=== PATIENT | female | born 1985 | race African-American/Black ===

== ENCOUNTER 2016-09-17 10:18 | Inpatient (IN) | payer OTHER ==
[2016-09-17 11:12] VITALS: BMI 21.9
--- NOTE | 2016-09-17 12:59 | HP ---
Admission [facility] Chief Complaint: i am here mandated by court to seek help for cocaine dependence Allergies/Adverse Reactions: Allergies Allergy/AdvReac Type Severity Reaction Status Date / Time No Known Allergies Allergy Verified 09/17/16 12:53 History of Present Illness: this 30 years old female with cocaine dependence ,mandated by court to come in for rehab,never been in detox or rehab before depression nicotine dependence weight loss [facility] on 08/22/16 Exam Limitations: No Limitations - Ebola screening Have you traveled outside of the country in the last 21 days: No Have you had contact with anyone from an Ebola affected area: No Have you been sick,other than usual withdrawal symptoms: No Do you have a fever: No - Review of Systems Constitutional: No Symptoms Reported EENT: reports: No Symptoms Reported Respiratory: reports: No Symptoms reported Cardiac: reports: No Symptoms Reported GI: reports: No Symptoms Reported : reports: No Symptoms Reported Musculoskeletal: reports: No Symptoms Reported Integumentary: reports: No Symptoms Reported Neuro: reports: No Symptoms reported Endocrine: reports: No Symptoms Reported Hematology: reports: No Symptoms Reported Psychiatric: reports: Depressed Patient History - Patient Medical History Hx Anemia: No Hx Asthma: No Hx Chronic Obstructive Pulmonary Disease (COPD): No Hx Cancer: No Hx Cardiac Disorders: No Hx Congestive Heart Failure: No Hx Hypertension: No Hx Hypercholesterolemia: No Hx Pacemaker: No HX Cerebrovascular Accident: No Hx Seizures: No Hx Dementia: No Hx Diabetes: No Hx Gastrointestinal Disorders: No Hx Liver Disease: No Hx Genitourinary Disorders: No Hx Sexually Transmitted Disorders: No Hx Renal Disease (ESRD): No Hx Thyroid Disease: No Hx Human Immunodeficiency Virus (HIV): No (last 06/27 negative) Hx Hepatitis C: No Hx Depression: Yes Hx Suicide Attempt: No Hx Bipolar Disorder: No Hx Schizophrenia: No Other Medical History: no suicidal,no homicidal - Patient Surgical History Past Surgical History: No - PPD History Previous Implant?: Yes Documented Results: Negative w/o proof Implanted On Prior R Admission?: No PPD to be Administered?: Yes - Reproductive History Patient is a Female of Child Bearing Age (11 -55 yrs old): Yes Patient : No - Smoking Cessation Smoking history: Current every day smoker Have you smoked in the past 12 months: Yes Aproximately how many cigarettes per day: 4 Cigars Per Day: 0 Hx Chewing Tobacco Use: No Initiated information on smoking cessation: Yes 'Breaking Loose' booklet given: 09/17/16 - Substance & Tx. History Hx Alcohol Use: No Hx Substance Use: Yes Substance Use Type: Cocaine Hx Substance Use Treatment: No - Substances Abused Cocaine Route: Inhalation Frequency: 3-6 times per week Amount used: 20$ Age of first use: 27 Date of Last Use: 09/16/16 Family Disease History - Family Disease History Family Disease History: Other: Father (alcohol,dsa ) Admission Physical Exam [facility] - Vital Signs Vital Signs: Vital Signs - 24 hr 09/17/16 11:08 Temperature 97.1 F L Pulse Rate 72 Respiratory 20 Rate Blood Pressure 125/72 - Physical General Appearance: Yes: Within Normal Limits HEENTM: Yes: Within Normal Limits, VIKRAM, Pharynx Normal Respiratory: Yes: Lungs Clear, Normal Breath Sounds Neck: Yes: Within Normal Limits, Supple, Trachea in good position Breast: Yes: Breast Exam Deferred Cardiology: Yes: Within Normal Limits, Regular Rhythm, Regular Rate, S1, S2 Abdominal: Yes: Within Normal Limits, Normal Bowel Sounds, Non Tender, Flat, Soft Genitourinary: Yes: Within Normal Limits Back: Yes: Within Normal Limits Musculoskeletal: Yes: Within Normal Limits Extremities: Yes: Within Normal Limits, Normal Inspection, Normal Range of Motion 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 intact, Alert, Motor Strength 5/5 Integumentary: Yes: Within Normal Limits Lymphatic: Yes: Within Normal Limits - Diagnostic (1) Cocaine dependence Current Visit: Yes Status: Acute (2) Weight loss Current Visit: Yes Status: Acute (3) Nicotine dependence Current Visit: Yes Status: Acute (4) Depression Current Visit: Yes Status: Acute Cleared for Admission [facility] - Detox or Rehab Claeared for Rehab Admission: Yes (please be noted that patient is ) [facility] Breath Alcohol Content Breath Alcohol Content: 0 Urine Pregancy Test - Result Urine Test Results: Positive - Line Present Urine Drug Screen - Results Drug Screen Negative: No Urine Drug Screen Results: GABRIELA-Cocaine
[2016-09-17] MEDS ORDERED: diphenhydrAMINE HCL 50 MG CAPSULE PO PRN (13:14)
[2016-09-17] MEDS ORDERED: LOPERAMIDE HCL 2 MG CAPSULE PO PRN (13:14)
[2016-09-17] MEDS ORDERED: IBUPROFEN 400 MG TABLET (FP) PO PRN (13:14)
[2016-09-17] MEDS ORDERED: P-EPHED 60MG/TRIPROLIDI 2.5MG TABLET PO PRN (13:14)
[2016-09-17] MEDS ORDERED: MAGNESIUM HYDROX 2400MG/30ML ORAL SUSPENSION 30 ML CUP PO PRN (13:14)
[2016-09-17] MEDS ORDERED: guaiFENesin/D-METHORPHAN HB 10 ML UNIT-DOSE CUPS PO PRN (13:14)
[2016-09-17] MEDS ORDERED: MAG HYDROX/AL HYDROX/SIMETH 30 ML UNIT-DOSE CUP PO PRN (13:14)
[2016-09-17] MEDS ORDERED: MAGNESIUM CITRATE 300 ML BOTTLE PO PRN (13:14)
[2016-09-17] MEDS ORDERED: hydrOXYzine PAMOATE 50 MG CAPSULE (FP) PO PRN (13:14)
[2016-09-17] MEDS ORDERED: TUBERCULIN PPD 5 TU/0.1ML VIAL ID ONE (15:00)
--- NOTE | 2016-09-17 15:23 | HP ---
Psychiatrist Admission - Data Date of interview: 09/17/16 Admission source: Court mandated Identifying data: This is the first admission to [address] [place] [address] for this 30 yo single AA mother of (12,10,6,13 months and 3 weeks old baby).Kids are in Foster care,Patient resides with boyfriend who is the father of her 3 weeks old baby girl,supported by [place]. Medical History: H/O BA. Psychiatric History: Patient reports depressed mood on and of for a few years.She was admitted to [facility] last year for severe depression.She was placed on Celexa,but stopped taking when she was discharged from the hospital.She was evaluated by psychiatrist about 1 year ago ,mandated by court.Patient states that medications were not recommended.denies suicidal attempts.Not on any psychotropic medcations at present. Physical/Sexual Abuse/Trauma History: denies Vital Signs: Vital Signs - 24 hr 09/17/16 09/17/16 11:08 15:05 Temperature 97.1 F L 98.2 F Pulse Rate 72 73 Respiratory 20 16 Rate Blood Pressure 125/72 120/82 Allergies/Adverse Reactions: Allergies Allergy/AdvReac Type Severity Reaction Status Date / Time No Known Allergies Allergy Verified 09/17/16 12:53 Date of last physical exam: 09/17/16 Concur with the findings of this exam: Yes - Substance Abuse/Tx History Hx Alcohol Use: No Hx Substance Use: Yes (reports reports started using cocaine/crack about 1 yo) Substance Use Type: Cocaine Hx Substance Use Treatment: Yes (this is her first inpatient treatment) - Admission Criteria Previous failed treatment: Yes Poor recovery environment: Yes Comorbidities: Yes Lacks judgement: Yes Mental Status Exam - Mental Status Exam Alert and Oriented to: Time, Place, Person Cognitive Function: Grossly Intact Patient Appearance: Unkempt Mood: Depressed, Sad Affect: Mood Congruent, Constricted Patient Behavior: Cooperative Speech Pattern: Clear Voice Loudness: Normal Thought Process: Goal Oriented Thought Disorder: Not Present Hallucinations: Denies Suicidal Ideation: Denies Homicidal Ideation: Denies Insight/Judgement: Fair Sleep: Fair Appetite: Good Muscle strength/Tone: Normal Gait/Station: Normal Psychiatric Findings - Problem List ([place] 1, 2,3) (1) Cocaine dependence Current Visit: Yes Status: Chronic (2) Nicotine dependence Current Visit: Yes Status: Chronic (3) Substance induced mood disorder Current Visit: Yes Status: Chronic - Initial Treatment Plan Initial Treatment Plan: Consider antidepressants if needed. Will monitor progress.
[2016-09-17 15:48] LABS: MCH 32.2 pg (25.7-33.7); MCHC 32.5 g/dl (32.0-36.0); MEAN PLT VOLUME 6.9 fl (7.5-11.1); PLATELET COUNT 289 K/MM3 (134-434); RDW 13.9 % (11.6-15.6); WHITE BLOOD COUNT 5.1 K/mm3 (4.0-10.0)
[2016-09-17 15:53] LABS: ALBUMIN 3.3 g/dl (3.4-5.0); CALCIUM 8.9 mg/dL (8.5-10.1)
[2016-09-17 15:56] LABS: BILIRUBIN,TOTAL 0.5 mg/dL (0.2-1.0); COCKROFT - GAULT 72.165; CREATININE 1.1 mg/dL (0.55-1.02); TOT PROT 6.1 g/dl (6.4-8.2)
[2016-09-17 17:26] LABS: URINE APPEARANCE CLEAR; URINE BILIRUBIN NEGATIVE (NEGATIVE); URINE COLOR LTYELLOW; URINE GLUCOSE (UA) NEGATIVE (NEGATIVE); URINE KETONE NEGATIVE (NEGATIVE); URINE LEUK ESTERASE NEGATIVE (NEGATIVE); URINE NITRITE NEGATIVE (NEGATIVE); URINE UROBILINOGEN NEGATIVE E.U./dl (0.2-1.0)
[2016-09-17 17:35] LABS: URINE BLOOD 1+ (NEGATIVE); URINE PROTEIN 2+ (NEGATIVE)
[2016-09-17 17:41] LABS: URINE MUCUS RARE; URINE RBC 5 /hpf (0-3); URINE WBC 3 /hpf (3-5)
[2016-09-17] MEDS: THIAMINE HCL 100 MG TABLET (FP) PO SCH (21:29)
[2016-09-18] MEDS: PRENATAL VITAMINS W/ FOLIC ACID TABLET (FP) PO SCH (10:08)
[2016-09-18 11:53] LABS: HIV 1 & 2 AB NEGATIVE; HIV 1 AGp24 NEGATIVE
--- NOTE | 2016-09-18 12:50 | EKG ---
Test Reason : Blood Pressure : / mmHG Vent. Rate : 064 BPM Atrial Rate : 064 BPM P-R Int : 166 ms QRS Dur : 082 ms QT Int : 400 ms P-R-T Axes : 048 026 038 degrees QTc Int : 412 ms NORMAL SINUS RHYTHM NORMAL ECG NO PREVIOUS ECGS AVAILABLE Confirmed by SHELDON PARDO MD ([id number]) on 09/18/2016 12:50:29 PM Referred By: Confirmed By:SHELDON PARDO MD
[2016-09-18] MEDS: THIAMINE HCL 100 MG TABLET (FP) PO SCH (21:21)
[2016-09-19] MEDS: PRENATAL VITAMINS W/ FOLIC ACID TABLET (FP) PO SCH (10:18)
[2016-09-19] MEDS ORDERED: AMOXICILLIN 500 MG CAPSULE (FP) PO ONE (13:21)
--- NOTE | 2016-09-19 13:24 | PN ---
[facility] Progress Note Note: sore throat ,pharynx injected,cervical lymphadenitis,amoxicillin 500 mgs po tid for 7 days for uri,motrin 400 mgs po prn for pain q 6 hrs
[2016-09-19] MEDS: AMOXICILLIN 500 MG CAPSULE (FP) PO SCH ×2 (13:46→21:37)
[2016-09-19] MEDS: MENTHOL/PHENOL 1 EACH UD MM PRN (14:44)
[2016-09-19] MEDS: ACETAMINOPHEN 325 MG TABLET (FP) PO PRN (18:32)
[2016-09-19] MEDS: THIAMINE HCL 100 MG TABLET (FP) PO SCH (21:37)
[2016-09-20] MEDS: AMOXICILLIN 500 MG CAPSULE (FP) PO SCH ×3 (07:03→21:31)
[2016-09-20] MEDS: ACETAMINOPHEN 325 MG TABLET (FP) PO PRN (08:59)
[2016-09-20] MEDS: MENTHOL/PHENOL 1 EACH UD MM PRN (09:00)
[2016-09-20] MEDS: PRENATAL VITAMINS W/ FOLIC ACID TABLET (FP) PO SCH (10:02)
[2016-09-20] MEDS: THIAMINE HCL 100 MG TABLET (FP) PO SCH (21:31)
[2016-09-21] MEDS: AMOXICILLIN 500 MG CAPSULE (FP) PO SCH ×3 (06:59→21:34)
[2016-09-21] MEDS: PRENATAL VITAMINS W/ FOLIC ACID TABLET (FP) PO SCH (10:09)
[2016-09-21] MEDS: THIAMINE HCL 100 MG TABLET (FP) PO SCH (21:34)
[2016-09-22] MEDS: AMOXICILLIN 500 MG CAPSULE (FP) PO SCH ×3 (07:27→21:27)
[2016-09-22] MEDS: PRENATAL VITAMINS W/ FOLIC ACID TABLET (FP) PO SCH (09:58)
[2016-09-22] MEDS: THIAMINE HCL 100 MG TABLET (FP) PO SCH (21:27)
[2016-09-23] MEDS: AMOXICILLIN 500 MG CAPSULE (FP) PO SCH ×3 (06:30→21:19)
[2016-09-23] MEDS: PRENATAL VITAMINS W/ FOLIC ACID TABLET (FP) PO SCH (10:53)
[2016-09-23] MEDS: THIAMINE HCL 100 MG TABLET (FP) PO SCH (21:19)
[2016-09-24] MEDS: AMOXICILLIN 500 MG CAPSULE (FP) PO SCH ×3 (06:42→21:23)
[2016-09-24] MEDS: PRENATAL VITAMINS W/ FOLIC ACID TABLET (FP) PO SCH (10:06)
[2016-09-24] MEDS: THIAMINE HCL 100 MG TABLET (FP) PO SCH (21:23)
[2016-09-25] MEDS: AMOXICILLIN 500 MG CAPSULE (FP) PO SCH ×3 (06:24→21:31)
[2016-09-25] MEDS: PRENATAL VITAMINS W/ FOLIC ACID TABLET (FP) PO SCH (10:03)
[2016-09-25] MEDS: THIAMINE HCL 100 MG TABLET (FP) PO SCH (21:31)
[2016-09-26] MEDS: AMOXICILLIN 500 MG CAPSULE (FP) PO SCH ×2 (06:11→13:16)
[2016-09-26] MEDS: PRENATAL VITAMINS W/ FOLIC ACID TABLET (FP) PO SCH (09:58)
[2016-09-26] MEDS: ACETAMINOPHEN 325 MG TABLET (FP) PO PRN (13:30)
--- NOTE | 2016-09-26 14:54 | PN ---
[facility] Progress Note Note: small cyst like mass left axilla,not tender or warm. P : bacitracin oin't bid
[2016-09-26] MEDS: THIAMINE HCL 100 MG TABLET (FP) PO SCH (21:43)
[2016-09-26] MEDS: BACITRACIN 0.9 GM PACKET TP SCH (21:44)
[2016-09-27] MEDS: BACITRACIN 0.9 GM PACKET TP SCH ×2 (09:49→21:12)
[2016-09-27] MEDS: PRENATAL VITAMINS W/ FOLIC ACID TABLET (FP) PO SCH (09:50)
[2016-09-27] MEDS: ACETAMINOPHEN 325 MG TABLET (FP) PO PRN (14:18)
[2016-09-27] MEDS: THIAMINE HCL 100 MG TABLET (FP) PO SCH (21:12)
[2016-09-28] MEDS: BACITRACIN 0.9 GM PACKET TP SCH ×2 (09:37→21:14)
[2016-09-28] MEDS: PRENATAL VITAMINS W/ FOLIC ACID TABLET (FP) PO SCH (09:38)
[2016-09-28] MEDS: ACETAMINOPHEN 325 MG TABLET (FP) PO PRN ×2 (14:49→21:14)
[2016-09-28] MEDS: THIAMINE HCL 100 MG TABLET (FP) PO SCH (21:14)
[2016-09-29] MEDS: BACITRACIN 0.9 GM PACKET TP SCH ×2 (10:03→21:27)
[2016-09-29] MEDS: PRENATAL VITAMINS W/ FOLIC ACID TABLET (FP) PO SCH (10:03)
[2016-09-29] MEDS: ACETAMINOPHEN 325 MG TABLET (FP) PO PRN (10:04)
--- NOTE | 2016-09-29 13:51 | PN ---
[facility] Progress Note Note: c/o headache associated with borderline elevated BP Vital Signs - 8 hr 09/29/16 09/29/16 06:47 10:10 Temperature 98.0 F Pulse Rate 77 76 Respiratory 18 Rate Blood Pressure 131/86 135/86 P : Lisinopril 5 mg
[2016-09-29] MEDS: LISINOPRIL 5 MG TABLET (FP) PO SCH (14:30)
[2016-09-29] MEDS: THIAMINE HCL 100 MG TABLET (FP) PO SCH (21:27)
[2016-09-30 10:27] LABS: CREATININE 0.8 mg/dL (0.55-1.02)
[2016-09-30] MEDS: PRENATAL VITAMINS W/ FOLIC ACID TABLET (FP) PO SCH (10:31)
[2016-09-30] MEDS: LISINOPRIL 5 MG TABLET (FP) PO SCH (10:31)
[2016-09-30] MEDS: BACITRACIN 0.9 GM PACKET TP SCH ×2 (10:31→21:25)
--- NOTE | 2016-09-30 15:16 | PN ---
[facility] Progress Note Note: no headache since started on lisinopril 5mg daily. Vital Signs - 8 hr 09/30/16 09/30/16 07:38 09:44 Temperature 98.7 F Pulse Rate 74 81 Respiratory 18 Rate Blood Pressure 112/73 115/73 creat 0.8 bun 26 Laboratory Results - last 24 hr 09/30/16 07:20 BUN 26 H D Creatinine 0.8 D
[2016-09-30] MEDS: THIAMINE HCL 100 MG TABLET (FP) PO SCH (21:24)
[2016-10-01] MEDS: BACITRACIN 0.9 GM PACKET TP SCH ×2 (10:16→21:25)
[2016-10-01] MEDS: LISINOPRIL 5 MG TABLET (FP) PO SCH (10:16)
[2016-10-01] MEDS: PRENATAL VITAMINS W/ FOLIC ACID TABLET (FP) PO SCH (10:16)
[2016-10-01] MEDS: THIAMINE HCL 100 MG TABLET (FP) PO SCH (21:24)
[2016-10-01] MEDS: ACETAMINOPHEN 325 MG TABLET (FP) PO PRN (21:25)
[2016-10-02] MEDS: BACITRACIN 0.9 GM PACKET TP SCH ×2 (10:23→21:27)
[2016-10-02] MEDS: PRENATAL VITAMINS W/ FOLIC ACID TABLET (FP) PO SCH (10:23)
[2016-10-02] MEDS: LISINOPRIL 5 MG TABLET (FP) PO SCH (10:23)
[2016-10-02] MEDS: ACETAMINOPHEN 325 MG TABLET (FP) PO PRN (19:35)
[2016-10-02] MEDS: THIAMINE HCL 100 MG TABLET (FP) PO SCH (21:27)
[2016-10-03 06:51] VITALS: TEMP 98
--- NOTE | 2016-10-03 08:59 | PN ---
Psychiatric Progress Note Vital Signs: Vital Signs Period Temp Pulse Resp BP Sys/[place] Pulse Ox Last 24 Hr 98.0 F 78 16 116/80 Date of Session: 10/03/16 Chief Complaint:: Discharge visit HPI: Patient addressed Cocaine dependence cpmorbid with Substance induced mood disorder. Current Medications: Active Medications Generic Name Dose Route Start Last Admin Trade Name Freq PRN Reason Stop Dose Admin Acetaminophen 650 mg 09/17/16 13:14 10/02/16 19:35 Tylenol - PO 650 mg Q4H PRN Administration PAIN Al Hydroxide/Mg Hydroxide 30 ml 09/17/16 13:14 Mylanta Oral Suspension - PO Q6H PRN DYSPEPSIA Bacitracin 0.9 gm 09/26/16 22:00 10/02/16 21:27 Bacitracin - TP 0.9 gm BID ROHAN Administration Diphenhydramine HCl 50 mg 09/17/16 13:14 10/02/16 21:28 Benadryl - PO 50 mg HSMR1 PRN Administration INSOMNIA Eucalyptus/Menthol/Phenol/Sorbitol 1 each 09/17/16 13:14 09/20/16 09:00 Cepastat Lozenge - MM 1 each Q4H PRN Administration SORE THROAT Guaifenesin 10 ml 09/17/16 13:14 Robitussin Dm - PO Q6H PRN COUGH Hydroxyzine Pamoate 50 mg 09/17/16 13:14 Vistaril - PO Q4H PRN AGITATION Ibuprofen 400 mg 09/17/16 13:14 Motrin - PO Q6H PRN SEVERE PAIN Lisinopril 5 mg 09/29/16 14:15 10/02/16 10:23 Prinivil PO 5 mg DAILY ROHAN Administration Loperamide HCl 4 mg 09/17/16 13:14 Imodium - PO Q6H PRN DIARRHEA Magnesium Citrate 300 ml 09/17/16 13:14 Citroma - PO Q48H PRN CONSTIPATION Magnesium Hydroxide 30 ml 09/17/16 13:14 Milk Of Magnesia - PO DAILY PRN CONSTIPATION Multivit/Folic Acid/Iron 1 tab 09/18/16 10:00 10/02/16 10:23 Vitamins (Sjr) - PO 1 tab DAILY ROHAN Administration Pseudoephedrine/Triprolidine 1 combo 09/17/16 13:14 Actifed - PO TID PRN NASAL CONGESTION Thiamine HCl 100 mg 09/17/16 22:00 10/02/16 21:27 Vitamin B1 - PO 100 mg HS ROHAN Administration Current Side Effect: No Lab tests ordered: No Lab tests reviewed: Yes Provider note:: Patient completed this program today.She has met her treatment goals and will continue to address her issues on outpatient basis at [facility].Patient continues to find that current treatment including medications ,therapy help her cope with stressors and will continue same while on outpatient basis. Patient identifies behaviors which contributes to elapse and skills,support she can utilze maintain recovery. patient is stable for discharge today. Total face to face time:: 30 Mental Status Exam - Mental Status Exam Alert and Oriented to: Time, Place, Person Cognitive Function: Grossly Intact Patient Appearance: Well Groomed Mood: Euthymic Affect: Mood Congruent Patient Behavior: Cooperative Speech Pattern: Clear Voice Loudness: Normal Thought Process: Goal Oriented Thought Disorder: Not Present Hallucinations: Denies Suicidal Ideation: Denies Homicidal Ideation: Denies Insight/Judgement: Fair Sleep: Fair Appetite: Fair Muscle strength/Tone: Normal Gait/Station: Normal
[2016-10-03 09:15] VITALS: BP 115/74; PULSE 92
[2016-10-03] MEDS: BACITRACIN 0.9 GM PACKET TP SCH (10:22)
[2016-10-03] MEDS: LISINOPRIL 5 MG TABLET (FP) PO SCH (10:22)
[2016-10-03] MEDS: PRENATAL VITAMINS W/ FOLIC ACID TABLET (FP) PO SCH (10:22)
== END 2016-10-03 10:25 | disposition home or self-care (01) | DRG 772 ==
LOC: YASAS 10:18 → Y3E 12:55
PROVIDERS: ADMIT Psychiatry & Neurology Psychiatry; ATTEND Psychiatry & Neurology Psychiatry
PROC: HZ42ZZZ Group Counseling for Substance Abuse Treatment, Cognitive-Behavioral (ICD-10-PCS; principal; 2016-10-03)
DX: F14.20 Cocaine dependence, uncomplicated (principal); F17.210 Nicotine dependence, cigarettes, uncomplicated; F19.24 Other psychoactive substance dependence with psychoactive substance-induced mood disorder; R63.4 Abnormal weight loss; Z68.22 Body mass index [BMI] 22.0-22.9, adult
CPT/HCPCS: 36415; 80053; 81003; 81015; 82565; 84520; 85027; 86593; 87389; 93005; 93010